=== PATIENT | female | born 1995 | race Caucasian/White ===

== ENCOUNTER 2018-09-29 01:44 | Emergency (ER) | payer OTHER ==
[~2018-09-29] VITALS: Ht 165.1 cm; Wt 81.7 kg
[~2018-09-29 01:44] MED LIST: CIPROFLOXACIN500 M1 PO; IBUPROFEN 800800 MG PO; ROBAXIN500 MG PO; VENTOLIN HFA INH8 GM INH
[2018-09-29] MEDS ORDERED: TRIAMCINOLONE A80 G2 TOP (02:05)
[2018-09-29] MEDS ORDERED: PREDNISONE50 MG PO (02:05)
[2018-09-29 02:35] VITALS: BP 131/73
== END 2018-09-29 02:36 | disposition home or self-care (01) ==
LOC: M.ERS 01:44
DX: L23.7 Allergic contact dermatitis due to plants, except food (principal); F12.10 Cannabis abuse, uncomplicated; J45.909 Unspecified asthma, uncomplicated; R53.1 Weakness